=== PATIENT | female | born 1985 | race Caucasian/White ===

== ENCOUNTER 2017-08-27 11:43 | Emergency (ER) | payer BC, OTHER ==
[2017-08-27 12:28] VITALS: BP 117/73
--- NOTE | 2017-08-27 12:48 | UC ---
Respiratory Complaint HPI - HPI Summary HPI Summary: Pt c/o cough, nasal congestion, "burning chest" X 2 days. denies fever - History of Current Complaint Chief Complaint: UCGeneralIllness Stated Complaint: COUGH/SINUS COMPLAINT Time Seen by Provider: 08/27/17 12:32 Hx Obtained From: Patient Hx Last Menstrual Period: 08/24/17 ?: No Onset/Duration: Sudden Onset, Lasting Days, Still Present Timing: Constant Severity Initially: Mild Severity Currently: Mild Pain Intensity: 2 Character: Cough: Nonproductive Aggravating Factors: Deep Breaths, Recumbent Position Alleviating Factors: Nothing Associated Signs And Symptoms: Positive: URI, Nasal Congestion, Hoarseness - Risk Factors Pulmonary Embolism Risk Factors: Negative Cardiac Risk Factors: Hypertension Pseudomonas Risk Factors: Negative Tuberculosis Risk Factors: Negative - Allergies/Home Medications Allergies/Adverse Reactions: Allergies Allergy/AdvReac Type Severity Reaction Status Date / Time bacitracin Allergy Hives Verified 08/27/17 12:19 enoxaparin [From Lovenox] Allergy Rash Verified 08/27/17 12:19 sulfamethoxazole Allergy Unknown Verified 08/27/17 12:19 [From Bactrim] Reaction Details trimethoprim [From Bactrim] Allergy Unknown Verified 08/27/17 12:19 Reaction Details vancomycin Allergy Unknown Verified 08/27/17 12:19 Reaction Details Home Medications: Home Medications Labetalol HCl 100 mg PO BID 08/27/17 [History Confirmed 08/27/17] NIFEdipine ER TAB* [Procardia Xl TAB*] 1 tab PO DAILY 08/27/17 [History Confirmed 08/27/17] Oxymetazoline HCl [Nasal [place]] 1 spray NASAL BID PRN 08/27/17 [History Confirmed 08/27/17] guaiFENesin LIQ* [Robitussin*] 10 ml PO ONCE PRN 08/27/17 [History Confirmed ] PMH/Surg Hx/FS Hx/Imm Hx Previously Healthy: No Cardiovascular History: Hypertension - Surgical History Surgical History: Yes Surgery Procedure, Year, and Place: 2 ; [address]; D Lo teeth extraction; D&C, childhood history cancer - Family History Known Family History: Positive: Cardiac Disease - Social History Occupation: Employed Full-time Lives: With Family Alcohol Use: Rare Substance Use Type: None Smoking Status (MU): Never Smoked Tobacco Have You Smoked in the Last Year: No Review of Systems Constitutional: Negative Skin: Negative Eyes: Negative ENT: Sinus Congestion Respiratory: Cough Cardiovascular: Negative Gastrointestinal: Negative Genitourinary: Negative Motor: Negative Neurovascular: Negative Musculoskeletal: Negative Neurological: Negative Psychological: Negative Is Patient Immunocompromised?: No All Other Systems Reviewed And Are Negative: Yes Physical Exam Triage Information Reviewed: Yes Appearance: Ill-Appearing Vital Signs: Initial Vital Signs Temp 97.6 F 08/27/17 12:22 Pulse 77 08/27/17 12:22 Resp 18 08/27/17 12:22 BP 117/73 08/27/17 12:22 Pulse Ox 99 08/27/17 12:22 Vital Signs Reviewed: Yes Eye Exam: Normal ENT Exam: Other ENT: Positive: Nasal congestion Dental Exam: Normal Neck exam: Normal Respiratory Exam: Normal Cardiovascular Exam: Normal Musculoskeletal Exam: Normal Neurological Exam: Normal Psychological Exam: Normal Skin Exam: Normal UC Diagnostic Evaluation - Laboratory O2 Sat by Pulse Oximetry: 99 Respiratory Course/Dx - Differential Dx/Diagnosis Differential Diagnosis/HQI/PQRI: Bronchitis, Influenza Provider Diagnoses: URI Discharge - Sign-Out/Discharge Documenting (check all that apply): Discharge - Discharge Plan Condition: Stable Disposition: HOME Patient Education Materials: Upper Respiratory Infection (ED) Referrals: Jorge Holder MD [Primary Care Provider] - - Billing Disposition and Condition Condition: STABLE Disposition: HOME
== END 2017-08-27 13:18 | disposition home or self-care (01) ==
LOC: UCCORT 11:43
DX: J06.9 Acute upper respiratory infection, unspecified (principal); Z88.2 Allergy status to sulfonamides; Z88.8 Allergy status to other drugs, medicaments and biological substances; Z88.3 Allergy status to other anti-infective agents
CPT/HCPCS: 99202; G0463